=== PATIENT | female | born 1965 | race Caucasian/White ===

== ENCOUNTER 2019-03-19 16:41 | Emergency (ER) | payer OTHER ==
[2019-03-19] MEDS ORDERED: diphenhydrAMINE 50 MG/ML VIAL ONE (16:56)
[2019-03-19] MEDS ORDERED: methylPREDNISolone Sod Succ/PF 125 MG/2 ML VIAL ONE (16:56)
[2019-03-19] MEDS ORDERED: Water For Inject, Bacteriostat 30 ML ONE (16:57)
== END 2019-03-19 17:35 | disposition home or self-care (01) ==
LOC: MADERS 16:41
DX: T63.461A Toxic effect of venom of wasps, accidental (unintentional), initial encounter (principal); Z71.6 Tobacco abuse counseling; E78.5 Hyperlipidemia, unspecified; I10 Essential (primary) hypertension; F17.210 Nicotine dependence, cigarettes, uncomplicated; F41.9 Anxiety disorder, unspecified; F32.9 Major depressive disorder, single episode, unspecified; Z79.899 Other long term (current) drug therapy
CPT/HCPCS: 96374; 96375; J1200; J2930